=== PATIENT | female | born 1955 | race Caucasian/White ===

== ENCOUNTER 2023-04-24 10:35 | Outpatient (RCR) | payer MEDICARE, OTHER, SELFPAY ==
--- NOTE | 2023-04-24 11:22 | PTOPEVAL1 ---
Assessment and note entered by Sin Foster Evaluation Information Assessment Status Evaluation Diagnosis neck pain, bilateral shoulder pain, vertebrogenic back pain Onset 04/19/23 Subjective Information Pt. reports that she has delt with on/off neck and shoulder pain for about 4-5 years. She reports that the pain in her neck and shoulders is constant. She denies any symptoms into the u.e. She states that she has no numbness and tingling. She states that pain is increased with prolonged periods of standing. She reports that she has not had xray or MRI. She states that she has developed some minor low back pain, but her neck and shoulder pain are her biggest concern. She reports that her pain will wake her at night on occasion and she is using a sleep aid. She takes Aleve daily to address her pain. She reports that her goal for therapy is to reduce her neck pain. Reported Pain Level Pain Score 4,3: Self Report Assessment PT Clinical Summary Pt. is a 67 year old female who enters the clinic with neck and low back pain. She presents with impaired postural awareness, core and proximal u.e . weakness, impaired cervical and lumbar spine ROM and pain. Continued skille PT is indicated in order to improve these areas to allow the pt. to be able to complete all IADL's with improved comfort and efficiency. Plan of Care Interventions Electrical Stimulation,Hot Pack/Cold Pack,Manual Therapy,Mechanical Traction,Neuro Re-education, Patient/Caregiver Educati,Therapeutic Activities, Therapeutic Exercise PT Services Indicated Yes Treatment Frequency and 2x/week x 12 visits Duration These treatments will address the objective and functional deficits as defined above. The patient will be advanced safely and appropriately in order for the patient to progress towards his/her prior level of function. Additional exercises will be introduced and as well as a comprehensive home exercise program upon discharge, if needed, ?to ensure carryover of functional gains achieved in the clinic. This treatment plan has been reviewed and agreement upon by the patient.
--- NOTE | 2023-04-24 11:23 | OPREHPOC ---
Outpatient Therapy Plan of Care This is a Multidisciplinary Plan of Care that may contain components documented by all disciplines (PT, OT, and ST.) PT Problem 1 PT Problem #1 Knowledge Deficit PT Goal 1 Goal Pt. will be independent with a HEP addressing strength and postural awareness Target Visit 2 PT Problem 2 PT Problem #2 Impaired Range of Motion PT Goal 1 Goal Pt. will improve c-spine ROM to 75 degrees bilateral rotation in order to improve visual field Target Visit 8 PT Goal 2 Goal Pt. will be able to reach to the floor to perform safe lifting technique with floor to waist lifting . Target Visit 8 PT Problem 3 PT Problem #3 Pain PT Goal 1 Goal Pt. will report 2/10 neck pain at worst with prolonged periods of standing for greater than 1 hour. Target Visit 12 PT Problem 4 PT Problem #4 Impaired Strength PT Goal 1 Goal Improve proximal u.e. strength to 4+/5 or greater at all mm. groups in order to improve postural awareness. Target Visit 12
--- NOTE | 2023-05-30 17:49 | OPREHPOC ---
Outpatient Therapy Plan of Care This is a Multidisciplinary Plan of Care that may contain components documented by all disciplines (PT, OT, and ST.) PT Problem 1 PT Problem #1 Knowledge Deficit PT Goal 1 Goal Pt. will be independent with a HEP addressing strength and postural awareness Target Visit 2 Progress Met PT Problem 2 PT Problem #2 Impaired Range of Motion PT Goal 1 Goal Pt. will improve c-spine ROM to 75 degrees bilateral rotation in order to improve visual field Target Visit 8 Comment continue PT Goal 2 Goal Pt. will be able to reach to the floor to perform safe lifting technique with floor to waist lifting . Target Visit 8 Comment continue PT Problem 3 PT Problem #3 Pain PT Goal 1 Goal Pt. will report 2/10 neck pain at worst with prolonged periods of standing for greater than 1 hour. Target Visit 12 Comment continue PT Problem 4 PT Problem #4 Impaired Strength PT Goal 1 Goal Improve proximal u.e. strength to 4+/5 or greater at all mm. groups in order to improve postural awareness. Target Visit 12 Comment continue
--- NOTE | 2023-05-30 17:49 | PTOPPROGNS ---
Assessment and note entered by Rica Barragan DPT Evaluation Information Assessment Status Evaluation Diagnosis neck pain, bilateral shoulder pain, vertebrogenic back pain Onset 04/19/23 Subjective Information Patient reports that since starting PT she feels like her neck ROM has improved. She feels like her posture has also improved. She reports since starting to come to PT in the afternoon's after school her pain levels have increased. Assessment PT Clinical Summary Patient has been seen for 10 visits of skilled PT. Patient has made some improvement with UE strength and ability to turn her head to drive and have conversation. Patient continues to have difficulty with sleeping and prolonged positioning . Patient will benefit from remaining 2 visits to address impairments and return to PLOF. Plan of Care Interventions Electrical Stimulation,Hot Pack/Cold Pack,Manual Therapy,Mechanical Traction,Neuro Re-education, Patient/Caregiver Educati,Therapeutic Activities, Therapeutic Exercise PT Services Indicated Yes Treatment Frequency and continue with remaining 2 visits Duration These treatments will address the objective and functional deficits as defined above. The patient will be advanced safely and appropriately in order for the patient to progress towards his/her prior level of function. Additional exercises will be introduced and as well as a comprehensive home exercise program upon discharge, if needed, ?to ensure carryover of functional gains achieved in the clinic. This treatment plan has been reviewed and agreement upon by the patient.
--- NOTE | 2023-06-28 17:07 | OPREHPOC ---
Outpatient Therapy Plan of Care This is a Multidisciplinary Plan of Care that may contain components documented by all disciplines (PT, OT, and ST.) PT Problem 1 PT Problem #1 Knowledge Deficit PT Goal 1 Goal Pt. will be independent with a HEP addressing strength and postural awareness Target Visit 2 Progress Met PT Problem 2 PT Problem #2 Impaired Range of Motion PT Goal 1 Goal Pt. will improve c-spine ROM to 75 degrees bilateral rotation in order to improve visual field Target Visit 8 Progress Not Met Comment continue PT Goal 2 Goal Pt. will be able to reach to the floor to perform safe lifting technique with floor to waist lifting . Target Visit 8 Progress Met Comment continue PT Problem 3 PT Problem #3 Pain PT Goal 1 Goal Pt. will report 2/10 neck pain at worst with prolonged periods of standing for greater than 1 hour. Target Visit 12 Progress Not Met Comment continue PT Problem 4 PT Problem #4 Impaired Strength PT Goal 1 Goal Improve proximal u.e. strength to 4+/5 or greater at all mm. groups in order to improve postural awareness. Target Visit 12 Progress Not Met Comment continue
--- NOTE | 2023-06-28 17:08 | PTOPDC ---
Assessment and note entered by JT File, PT Evaluation Information Assessment Status Discharge Diagnosis neck pain, bilateral shoulder pain, vertebrogenic back pain Onset 04/19/23 Subjective Information [email or web address] reports she continues to have increased pain in the neck since returning to school. however, she reports her mobility still feel better. she reports she is hoping to get a breast reduction surgery to help alleviate some of her neck and back pains. Reported Pain Level Pain Score 8,8: Self Report Assessment PT Clinical Summary mrs. silva presentse to skilled PT services today for her 12th skilled therapy visit. until return to work she was doing well with reduced pain and improved rom. however, since returning to work her pain has returned and her neck is a bit tighter. however, she reports feeling she has more mobility. she is hoping to get a breast reduction surgery soon to help with her neck and back pain. as of this date, she will be dc'd from skilled PT services, and all progress towards goals will be taken from her most recent evaluation/note. Plan of Care PT Services Indicated Yes
== END 2023-06-28 19:00 | disposition home or self-care (01) ==
LOC: CHSPT 10:35
DX: M54.9 Dorsalgia, unspecified (principal); M54.2 Cervicalgia; M25.519 Pain in unspecified shoulder; N62 Hypertrophy of breast
CPT/HCPCS: 97014; 97110; 97140; 97150; 97161; G0283

== ENCOUNTER 2025-03-17 21:46 | Emergency (ER) | payer MEDICARE, OTHER, SELFPAY ==
[2025-03-17 21:46] VITALS: BP 155/76; PULSE 62; RESP 16; TEMP 36.8; O2SAT 97
--- NOTE | 2025-03-17 21:52 | ED_ITS ---
HPI - Extremity Injury (Lower) General Chief Complaint: Wound/Laceration Stated Complaint: left lower leg skin tear Time Seen by Provider: 03/17/25 21:51 Source: patient Mode of arrival: ambulatory Limitations: no limitations History of Present Illness HPI Narrative: 69 year old female presents to the Emergency Department with laceration to anterior left lower leg. Patient states she struck her leg with rake several hours ago. Unknown last tetanus. complaint: leg injury Onset (ago): hour(s) Type of Injury: laceration Place: home Severity: mild Relieving factors: nothing Exacerbating factors: nothing Context: direct blow Other symptoms: none Related Data Allergies Allergy/AdvReac Type Severity Reaction Status Date / Time No Known Allergies Allergy Mild Verified 03/17/25 21:57 Review of Systems Review of Systems: All systems reviewed & are unremarkable except as noted in HPI and below Constitutional: Constitutional: Reports as per HPI and Reports no additional constitutional complaints Eyes: Eyes: Reports as per HPI and Reports no additional eye complaints ENT: Reports system reviewed and no additional complaints, except as documented Cardiovascular: Cardiovascular: Reports as per HPI and Reports no additional cardiovascular complaints Respiratory: Respiratory: Reports as per HPI and Reports no additional respiratory complaints Gastrointestinal: Gastrointestinal: Reports as per HPI and Reports no additional gastrointestinal complaints Genitourinary: Genitourinary: Reports no additional female genitourinary complaints Musculoskeletal: Musculoskeletal: Reports no additional musculoskeletal complaints Integumentary/Breasts: Skin/Breast: Reports system reviewed and no additional complaints, except as docu Neurologic: Reports system reviewed and no additional complaints, except as documented Endocrine: Endocrine: Reports no additional endocrine complaints Hematologic/Lymphatic: Hematologic/Lymphatic: Reports no additional hematologic/lymphatic complaints Allergic/Immunologic: Allergic/Immunologic: Reports no additional allergic/immunologic complaints [facility] Family History Family History Father Family history of lung cancer Social History Social History Alcohol intake: current Exam Const: General: healthy appearing Nutritional Appearance: well nourished Orientation/consciousness: patient oriented x3 Limitations: no limitations HENMT: Head: normal to inspection Ears: external ears normal Face/Nose/Sinus: Normal external nose present Face and sinus: normal facial exam Eyes: Pupils: Equal, round and reactive pupils present EOM: EOMs intact bilaterally Direct Ophthalmoscopy: no photophobia Neck: Neck: normal visual inspection Chest: Chest palpation & inspection: normal inspection of the chest Resp: Effort & Inspection: normal respiratory effort Cardio: Rate: regular rate GI: Inspection: non-distended Skin: General skin exam: normal color Other: 2.5-3 cm laceration to anterior lower le ft leg. No active bleeding. Neuro: General: patient oriented x3 Speech: normal speech Gait exam (Neuro): Normal gait present Other: grossly normal Extrem: General: no clubbing, cyanosis or edema Other: left lower leg laceration Course Course Emergency Course: 69 y/o female presents to the ED with laceration to LLE. Patient states she struck her leg with rake several hours ago. PE: 2.5-3 cm laceration to anterior lower leg. Skin is relatively thin, no active bleeding *discussed with patient. Offered to suture, however skin relatively thin. Patient opted to have wound steri stripped. Tx: wound cleansed, steri strips, dressing, tetanus update Instructions Discharge Plan Discharge Clinical Impression: Laceration of left lower extremity Patient Disposition: Home Condition: Stable Instructions: Laceration (ED) Additional Instructions: Neosporin ointment topically 2-3x/day Tylenol, Ibuprofen and Aleve as needed Follow up Primary Care Physician Patient Language: Latvian Follow-up/Referrals: UNKNOWN,DOCTOR [Primary Care Provider] - Time of Disposition: 22:10
--- OUTSIDE RECORDS SUMMARY | 2025-03-17 21:52 | XMS_ITS | Data Portability ---
Author Organization [facility] [place] Address [address] [place] [address] Care Team Providers Care Cook Mess Name Role Phone [facility]IE [facility] Primary Care Provider Assessment Encounter Date Assessment Date Assessment LastModified by Organization Details LastModified Time 12/11/2021 12/11/2021 Annual gynecological exam performed. Patient will come back in a year unless there are new symptoms. [email or web address] Not available 10/27/2021 14:13:06 Plan of Treatment Reminders Order Date Submit Date Provider Last Modified By Organization Details Last Modified Time Details Appointments None recorded. Lab None recorded. Referral plastic surgeon referral [facility] Lamont Flores MD, [address], [place], [address], 2 12:40:48 gastroenter ologist referral - Please reach out to Olga to schedule her for an appt for a screening colonoscopy . If you have any questions or require further information , please contact me at [phone]. Thank you, MOJGAN Benitez 2021 [facility], [address], [address], [place], [address], 3 05:01:46 Procedures None recorded. Surgeries None recorded. Imaging DEXA, axial skeleton + vertebral fracture assessment 2021 DANIE [facility], [address], [place], [address], 23:25:01 Medication Orders fluoxetine 10 mg capsule 2021 022 DAN[facility], [facility] [place], [address], 13:20:19 Patient TargetsNo targets recorded. Patient InstructionsNo instructions recorded. Reason for Referral Transcribing Operator Head Referral for Screening for malignant neoplasm of colon Please reach out to Olga to schedule her for an appt for a screening colonoscopy. If you have any questions or require further information, please contact me at [phone]. Thank you, MOJGAN Benitez Referring Physician: Gabriela Sanchez, DROPHAMMER OPERATOR, Encounter Date: 12/11/2021 Plastic Surgeon Referral for Chronic neck pain Referring Physician: Gabriela Sanchez DROPHAMMER OPERATOR, Encounter Date: 12/11/2021 Results Created Date Observation Date Name Description Value Unit Range Abnormal Flag Note LastModifiedBy Organization Detail LastModifiedTime 12/14/19 22 12/13/2021 IMAGE GUIDE D PAP AND HPV REGAR DLESS image guided Pap, HPV regardless of Pap result SEE RESULT S BELOW CASE REPOR T: Cytol ogy Gynec ologi caridad Repor t Case: [id number] Autho nima clem Provi noemi: Jimmy Nowak Colle cted: 12/13 0808 OBGYN HOSPITALIST PHYSICIAN Order ing Locat ion: [place] Patho log[facility] Recei francisca: 12/14 0159 First Scree n: Celi Aguiar ret, CT Speci men: Scree susu Pap - Image d, Cervi x STATE MENT OF ADEQU ACY: Satis facto ry for evalu ation Trans forma tion zone compo nent prese nt FINAL DIAGN OSIS: Negat joshua for Intra epith elial Lesjames n or Sherron salmon (NIL) . Elect claudia byrd bhavya d by Celi Aguiar ret, CT on 2021 at 3:47 PM ----- ----- ----- ----- ----- ----- ----- ----- ----- ----- ----- ----- ----- ----- ----- ----- ----- ---- HPV RESUL TS: HPV mRNA E6/E7 : No HPV mRNA Detec aquilino NOTE: This high risk HPV mRNA assay detec ts fourt een high- risk HPV types (16, 18, 31, 33, 35, 39, 45, 51, 52, 56, 58, 59, 66, 68) witho ut diffe renti ation . COMME NT: Note: This speci men was revie wed by a Cytot echno logis t and/o r Patho logis t (as indic ated in this repor t) after evalu ation using the Thinp rep Imagi ng Syste m. CLINI CARIDAD INFOR MATIO N: Menst rual Statu s: LMP (if appli cable ): Clini caridad Histo ry/Pr eviou s Pap: Type of Neopl toyin (if appli cable ): Signi fican t Clini caridad Findi ngs: Other Histo ry: Hormo hazel (if appli cable ): PAP EDUCA JAZMIN L NOTE: The Pap Test is a scree susu test with an inher ent false negat joshua rate. Liqui d-bas ed sampl ing may decre ase, but will not elimi ras, false negat joshua resul ts. A negat joshua resul t does not precl ude the prese nce and/o r devel opmen t of disea se, since the prese nce of abnor mal cells in the sampl e depen ds on the locat ion of the lesio n and sampl ing techn ique. Arlyn nued regul ar scree susu is the best metho d of cance r preve ntion . If repor aquilino cytol ogic findi ng do not corre late with physi caridad and/o r histo rical findi ngs, furth er inves tigat ion is recom jeanine d, as clini tonya jin nted. Not Available [facility] (Lab) [address], [place], [address], 12/17/2021 17:10:24 12/24/19 22 12/23/2021 DEXA, axial skele ton + verte bral fract ure asses sment No observ ation record ed. [email or web address] [place] [address] (Radiology) [address], [place], [address], 12/29/2021 14:34:17 12/24/19 22 12/23/2021 MAMMO , scree susu, bilat eral No observ ation record ed. [email or web address] [facility] [address] [place], [address], 12/29/2021 14:36:05 Result Notes None recorded. Problems Name Problem SNOMED Code Status Onset Date Resolution Date Notes Provider Name and Address Organization Details Recorded Time SNOMED CT Concept Completed 201810/27/2021 Encounte r for general adult medical exam w abnormal findings ;Practic e ID: 0001 Haley Luis [facility] 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 2 14:14:02 Emotiona l state finding Completed 201810/27/2021 Anxiety depressi on;Recor ded Elsewher e: No Locat ion: [facility] S ource: EHR Cad Administrator vee: N Practi ce ID: 0001 Bulmaro lable Time: 11:30:00 AM Haley Smith [facility] 2 14:13:32 Evaluati on finding Completed 201810/27/2021 Hematuri a, unspecif ied;Sudarshan rded Elsewher e: No Locat ion: [facility] S ource: EHR Cad Administrator vee: N Practi ce ID: 0001 Bulmaro lable Time: 11:30:00 AM Haley reyna, [facility] 2 14:13:40 Adult health examinat ion Completed 201310/27/2021 Routine Medical Exam;Rec orded Elsewher e: No Locat ion: [facility] S ource: EHR Cad Administrator vee: N Aakash ce ID: 0001 Bulmaro lable Time: 01:00:00 PM Haley reyna, [facility] 2 14:13:38 Atypical squamous cells of undeterm ined signific ance on cervical Papanico laou smear [id number] Completed 201110/27/2021 Papanico laou smear of cervix with atypical squamous cells of undeterm ined signific ance (ASC-US) ;Recorde d Elsewher e: No Locat ion: [facility] S ource: EHR Cad Administrator vee: N Aakash ce ID: 0001 Bulmaro lable Time: 03:45:00 PM Haley reyna, [facility] 2 14:14:15 Finding of body mass index 853857115 Completed 201810/27/2021 Body mass index (BMI) 40.0-44. 9, adult;Re corded Elsewher e: No Locat ion: [facility] S ource: EHR Cad Administrator vee: N Aakash ce ID: 0001 Bulmaro lable Time: 11:30:00 AM Haley reyna, [facility] 2 14:13:53 Speciali zed medical examinat ion Completed 201310/27/2021 Gynecolo gical Examinat ion;Sudarshan rded Elsewher e: No Locat ion: [facility] S ource: EHR Cad Administrator vee: N Aakash ce ID: 0001 Bulmaro lable Time: 01:00:00 PM Haley reyna, [facility] 2 14:14:20 Screenin g for malignan t neoplasm of rectum Completed 201510/27/2021 Encounte r for screenin g for malignan t neoplasm of rectum;R ecorded Elsewher e: No Locat ion: Basia massey [facility] S ource: EHR Cad Administrator vee: N Practi ce ID: 0001 Bulmaro lable Time: 03:30:00 PM Haley reyna [facility] 2 14:13:51 Removal of intraute rine device Completed 201210/27/2021 REMOVAL OF IUD;Sudarshan rded Elsewher e: No Locat ion: [facility] S ource: EHR Cad Administrator vee: N Practi ce ID: 0001 Bulmaro lable Time: 11:45:00 AM [facility] 14:14:21 Blood in urine [id number] Completed 201410/27/2021 HEMATURI A NOS;Sudarshan rded Elsewher e: No Locat ion: [facility] S ource: EHR Cad Administrator vee: N Practi ce ID: 0001 Bulmaro lable Time: 10:42:25 AM Haley reyna, [facility] [address] 14:13:[address] Concept Completed 201510/27/2021 Encntr for general adult medical exam w/o abnormal findings ;Recorde d Elsewher e: No Locat ion: [facility] S ource: EHR Cad Administrator vee: N Practi ce ID: 0001 Bulmaro lable Time: 03:30:00 PM Haley reyna [facility] 2 14:13:59 Microsco pic hematuri a [id number] Completed 201210/27/2021 MICROSCO PIC HEMATURI A;Record ed Elsewher e: No Locat ion: [facility] S ource: EHR Cad Administrator vee: N Practi ce ID: 0001 Bulmaro lable Time: 03:30:00 PM Haley reyna, [facility] 2 14:13:37 Screenin g for malignan t neoplasm of cervix Completed 201210/27/2021 Screenin g for malignan t neoplasm s of the cervix;R ecorded Elsewher e: No Locat ion: Mineanny massey [facility] S ource: EHR Cad Administrator vee: N Practi ce ID: 0001 Bulmaro lable Time: 03:30:00 PM Haley reyna, [facility] 2 14:13:35 Screenin g for malignan t neoplasm of colon Completed 201010/27/2021 Special screenin g for malignan t neoplasm s, colon;Pr actice ID: 0001 Haley reyna, [facility] 2 14:13:50 Problem Notes None recorded. Procedures Surgical History Date Name Laterality Status Provider Name and Address Organization Details Recorded Time 03/19/20 19 Date of Last Pap Smear completed [facility] 12/11/2021 12:34:13 10/09/19 15 Date of Last Colonoscopy completed [facility] 12/11/2021 12:52:45 10/09/19 [address] [facility] 12/11/2021 12:36:31 Carpal tunnel surgery completed [facility] 12/11/2021 12:36:37 angiography of coronary artery completed [facility] 12/11/2021 12:36:48 angioplasty of femoral artery completed [facility] 12/11/2021 12:37:03 cardiac catheterization completed [facility] 12/11/2021 12:37:33 Tubal Ligation completed [facility] 12/11/2021 12:37:41 Endometrial Ablation completed [facility] 12/11/2021 12:41:24 Imaging Results None recorded. Procedure Notes None recorded. Medical Equipment None Reported. Allergies No known drug allergies Medications Name Sig Start Date Stop Date Status Note LastModified by Organization Details LastModified Time Wellbutri n 75 mg tablet take 1 tablet by oral route 3 times every day 01/31 completed Prescrib ed Elsewher e: Yes [facility] By: eve quiros DateTime : 01/10/20 12 03:45:00 PM Not Available Not Available Not Available hydrochlo rothiazid e 12.5 mg capsule take 2 capsule by oral route every day active Not Available Not Available No t Available fluoxetin e 10 mg capsule Take 1 capsule( s) every day by oral route at bedtime for 30 days. 2021 active Not Available Not Available Not Avai lable metoprolo l succinate ER 25 mg tablet,ex tended release 24 hr active Not Available Not Available Not Available lisinopri l 40 mg tablet active Not Available Not Available Not Available lisinopri l 2.5 mg tablet take 1 tablet by oral route every day active Not Available Not Available No t Available bupropion HCl XL 300 mg 24 hr tablet, extended release TAKE 1 TABLET (300MG) BY ORAL ROUTE EVERY DAY active Not Available Not Available No t Available metoprolo l succinate active Not Available Not Available No t Available Vitals Date Recorded Body height Body mass index (BMI) Body weight Systolic blood pressure Diastolic blood pressure Systolic blood pressure Diastolic blood pressure Provider Name and Address Organization Details Last Updated DateTime 2 144.78 cm 42.8 kg/m2 53626.2 9 g 152 mm[Hg] 79 mm[Hg] 140 mm[Hg] 70 mm[Hg] [facility] 2 12:52:23 Social History None recorded. Functional Status None recorded. Mental Status None recorded. Family History Nothing Reported Notes:Father: Cancer, lung, Diabetes mellitus, Hypertension Maternal grandfather: Tuberculosis Mother: Hepatitis Medical History Condition Response Other N Blood Transfusion N Dermatologic Disorders N Gestational Diabetes N Anxiety Disorder N Autoimmune disease N Arthritis N Polyps N Infertility N Acid Reflux (GERD) N Cancer N Varicosities N Stroke N Neurologic/Epilepsy N Fibromyalgia N Headaches N Kidney Disease N Heart Problems N Kidney or Bladder Problems N Eating Disorder N Art (IVF or FET) N Hepatitis/Liver Disease N No Past Medical History N Urinary Tract Infection N Asthma N Trauma/Violence N Thrombophilias N Allergies (Food, seasonal, environmental ) N Breast Cancer N Drug/Latex Allergies/Reactions N Lung Disease N Defects or Inherited Disease N Breast Problem N Hematologic disorders N Anesthesia Complications N History of STI N Deep Vein Thrombosis N Polycystic ovary syndrome N History of abnormal pap N Endometriosis N High Cholesterol N Thyroid Problems N GI Problems N Anemia N Psychiatric Illness N Ovarian Cancer N Diabetes N Pulmonary (TB, Asthma) N Eczema N Abuse/Domestic Violence N Depression/ depression N Heart Disease N Pre-Eclampsia N Hypertension Y Osteoporosis N Gynecological History Statement/Question Response Date of Last Pap Smear 03/19/2019 Current Control Method Tubal Ligat ion Date of Last Mammogram Date of Last Colonoscopy 10/09/2014 Obstetrics History GPAL:G 3 P 3 0 0 3 Type Value Full Term 3 Living 3 Total 3 Past Encounters Encounter ID Performer Location Encounter Start Date Encounter Closed Date Diagnosis/Indication Diagnosis SNOMED-CT Code Diagnosis ICD10 Code Diagnosis Note [id number] Gabriela Sanchez , [facility] [address] [address] 12/11/2021 12:44:05 12/13/2021 13:20:48 Gynecologic examination 42095333 Z01.419 Take Calcium with Vitamin D 12-1500mg daily. Do monthly self breast exams. It is advised to get annual flu shot in the fall and she could obtain at [facility] or [facility] care clinic. If you haven't received the Tdap vaccine in the last 10 years you should obtain one as well. Have mammogram yearly, bone density every 2-3 years and colonoscop y every 5-10 years depending on findings and history. Engage in daily exercise of low impact aerobic exercise 45-60 minutes 4-5 times weekly. Avoid tobacco and illicit drugs as well as using moderation with alcohol intake less than 1-2 8 oz beverages daily. This lifestyle behavior pattern will lead to less health conditions and longer life span. If BMI greater than 25 weight watchers or dietary consult advised. Questions have been answered. Patient appears to understand instructio ns, but if you have any further questions call or respond to this email Pap/hpv-Se ntColon screen-ord eredDexa screen-ord eredMammo screen-ord eredAdvise d to est care with a new PCP vs the clinic she has been going to who manages her HTN medication ; need re-evaluat ion of HTN medication to ensure no issues there since BP is a bit high today on her medication s. Screening for malignant neoplasm of colon 360995252 Z12.11 Postmenopausal state 764 07267 Z78.0 Menopause 136380267 N95. 1 Not a candidate for HRT but is for Non-HRT.We discussed trial of Fluoxetine low dose x 6wks with [employer].Ho t flashes & trouble sleeping could also be related to HTN; she was advised to seek out PCP services.N eg suicidal ideations/ thoughts of self-harm. Chronic neck pain [id number] 3369 107 M54.2 Request for referral for breast reduction consult.Ch ronic neck/back pain.Tried PT/Support joshua bras etc.Does not feel anything was beneficial . [id number] Gabriela Sanchez , [facility] [address] [address] 02/14/2022 12:06:39 02/14/2022 13:26:46 Menopausal symptom 59687552 N95.1 Trial of prozac initiated at her [facility].Stoppe d taking it b/c it kept her up at night.She did not try taking it in the morning.Sh e has decided to give taking this medication in the AM a try; and if it is still keeping her up at night after a week she will reach out & we will switch to Paxil SSRI instead.Ne g suicidial ideations or thoughts of self harm. Total time of virtual-ZO OM visit was approx 15 mins with >50% consisting of counseling , education of patient's plan of care. Health Concerns Section Related Observation LastModified by Organization Detai ls LastModified Time None Recorded Concern Status LastModified by Organization Details LastModified Time None Recorded Advance Directives Directive None Recorded Payers Encounter Date Sequence Insurance Name Policy Number Policy Moore Covered Member ID Moore Member ID Guarantor Name 12/11/2021 1 MEDICARE-DC (MEDICARE) Olga Mccord [id number] Olga Mccord 12/11/2021 2 [employer]OORVAA Olga Mccord [id number] Olga Mccord 02/14/2022 1 MEDICARE-[place] (MEDICARE) Olga Mccord [id number] Olga Mccord 02/14/2022 2 [employer] (MEDICARE SUPPLEMENT) Olga Mccord [id number] Olga Mccord Notes Date Note Type Note Provider Name and Address Organization Details Recorded Time 12/11/2021 text/html 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 Post-MenopausalRep orted bypatient.Menopaus al Symptoms:normal vaginal lubrication;hot flashes;insomnia due to night sweats Vaginal Bleeding:history of menopause having occurred; no history of post menopausal bleeding Urinary Symptoms:no hematuria; no incontinence; no nocturia; no urinary frequency Vulva:no genital lesion; no vulvar atrophy Vagina:normal vaginal discharge; no vaginal atrophy Breast:no breast lump; no nipple discharge; no breast pain Sexual Complaints:no sexual complaints Psychological Symptoms:no depression; no anxiety Preventive Measures:encourage regular mammograms starting age 40; encourage self breast examination; encourage regular exercise; encourage no tobacco use; needs to schedule mammogram; needs to schedule colonoscopy; needs to schedule bone density NORMA Dowell [address], [place], [address], [facility] 12/11/2021 13:30:47 02/14/2022 text/html Virtual visit fo r medication check of Prozac for menopause issues. Phone Consent: This visit was completed via Virtual Visit Zoom due to the restrictions of the COVID-19 pandemic; all issues as below were discussed and addressed but no physical exam was performed. If it was felt that the patient should be evaluated in clinic then they were directed there. The patient verbally consented to this virtual Zoom visit. NORMA Dowell [address], [place], [address], [facility] 02/14/2022 13:03:13 OBGyn Episode Ob Episode Information Episode Created Date Number of Fetuses Patient Bloodtype Patient rh Status Prepregnancy Weight lbs Domestic Partner Domestic Partner Phone Father Name Plate Driller Status 12/12/19 22 1 CLOSED Fetus Data First Name Last Name Admitted to NICU Weight (g) Sex Living Outcome Pediatric Complications Fetus ID Race Codes Race Delivery Type F [id number] Vaginal Delivery Ladarius Calculation Initial Ladarius Date Initial Exam Date Initial Exam Provider Initial Ultrasound Date Last Menstrual Period Date Ultra Sound Weeks Gestation 0 Eighteen To Twenty Week Ladarius Update Ultra Sound Date Fundal Height At Umbil Quickening Date Ultra Sound Latest Weeks Gestation Final Ladarius Confirmed By Final Ladarius Confirmed Date Final Ladarius Date Ultra Sound Latest Days Gestation 0 0 Menstrual History Last Menstrual Date Menses Monthly On Bcp Conception Prior Menses Frequency Hcg Plus Date Menarche Onset Age Delivery Information Delivery Date Delivery Type Labor Anesthesia Weeks Gestation Incision Type Labor Labor Length Hrs Delivered By Post Complications Tubal Sterilization Discharge Date Comments 2 Discharge Information Feeding Method Contraceptive Method Maternal HG B and HCT Levels Ob Episode Information Episode Created Date Number of Fetuses Patient Bloodtype Patient rh Status Prepregnancy Weight lbs Domestic Partner Domestic Partner Phone Father Name Plate Driller Status 12/12/19 22 1 CLOSED Fetus Data First Name Last Name Admitted to NICU Weight (g) Sex Living Outcome Pediatric Complications Fetus ID Race Codes Race Delivery Type M [id number] Vaginal Delivery Ladarius Calculation Initial Ladarius Date Initial Exam Date Initial Exam Provider Initial Ultrasound Date Last Menstrual Period Date Ultra Sound Weeks Gestation 0 Eighteen To Twenty Week Ladarius Update Ultra Sound Date Fundal Height At Umbil Quickening Date Ultra Sound Latest Weeks Gestation Final Ladarius Confirmed By Final Ladarius Confirmed Date Final Ladarius Date Ultra Sound Latest Days Gestation 0 0 Menstrual History Last Menstrual Date Menses Monthly On Bcp Conception Prior Menses Frequency Hcg Plus Date Menarche Onset Age Delivery Information Delivery Date Delivery Type Labor Anesthesia Weeks Gestation Incision Type Labor Labor Length Hrs Delivered By Post Complications Tubal Sterilization Discharge Date Comments 7 Discharge Information Feeding Method Contraceptive Method Maternal HG B and HCT Levels Ob Episode Information Episode Created Date Number of Fetuses Patient Bloodtype Patient rh Status Prepregnancy Weight lbs Domestic Partner Domestic Partner Phone Father Name Plate Driller Status 12/12/19 22 1 CLOSED Fetus Data First Name Last Name Admitted to NICU Weight (g) Sex Living Outcome Pediatric Complications Fetus ID Race Codes Race Delivery Type F [id number] Vaginal Delivery Ladarius Calculation Initial Ladarius Date Initial Exam Date Initial Exam Provider Initial Ultrasound Date Last Menstrual Period Date Ultra Sound Weeks Gestation 0 Eighteen To Twenty Week Ladarius Update Ultra Sound Date Fundal Height At Umbil Quickening Date Ultra Sound Latest Weeks Gestation Final Ladarius Confirmed By Final Ladarius Confirmed Date Final Ladarius Date Ultra Sound Latest Days Gestation 0 0 Menstrual History Last Menstrual Date Menses Monthly On Bcp Conception Prior Menses Frequency Hcg Plus Date Menarche Onset Age Delivery Information Delivery Date Delivery Type Labor Anesthesia Weeks Gestation Incision Type Labor Labor Length Hrs Delivered By Post Complications Tubal Sterilization Discharge Date Comments Discharge Information Feeding Method Contraceptive Method Maternal HG B and HCT Levels
--- OUTSIDE RECORDS SUMMARY | 2025-03-17 21:52 | XMS_ITS | Data Portability ---
Author Organization [facility], [address] Neurology (CT) Address [address] [place] [address] Care Team Providers Care Switcher Name Role Phone ELYSIA FAIRBANKS Primary Care Provider Assessment Encounter Date Assessment Date Assessment LastModified by Organization Details LastModified Time 01/20/2025 01/20/2025 Ms. Mccord is a 69-year-old female with a history of gallstone pancreatitis status post cholecystectomy in 2019 with one more episode of pancreatitis, anxiety and depression who presents for follow-up. CT abdomen in January 2023 had shown pancreatitis with nonorganized fluid collection, without necrosis. MRCP in January 2023 showed no evidence of choledocholithiasis and a normal pancreatic duct. It did note a 5 mm fluid collection with a differential of a pseudocyst versus side branch IPMN. They had recommended a repeat in six months. MRCP performed at [facility] in July 2023 showed normal caliber of the bile ducts without any stones and normal caliber of pancreatic duct without any inflammation. No suspicious liver lesions or pancreatic lesions were noted. She was on lisinopril and hydrochlorothiazide prior to that admission, which could have contributed to the pancreatitis. She currently complains of Left upper quadrant pain and chronic diarrhea with four to five stools per day. Her last colonoscopy was in 2022 and showed a mildly redundant colon with 1 small tubular adenoma. Her current symptoms are not suggestive of pancreatitis and she will not benefit from an ERCP. -Will perform upper endoscopy under monitored anesthesia care. Discussed risks of performing endoscopy including an allergic reaction to medications, missed lesions, infections, bleeding, perforation requiring surgery and rarely catastrophic cardiopulmonary events resulting in . -Provided info on low FODMAP diet to help with the diarrhea -Will do a trial of cholestyramine for the diarrhea -Recommended avoiding Pepto-Bismol -She will be due for her next colonoscopy in 2027 [email or web address] Not available 01/27/2025 10:50:37 Plan of Treatment Reminders Order Date Submit Date Provider Last Modified By Organization Details Last Modified Time Details Appointments None recorded. Lab None recorded. Referral None recorded. Procedures None recorded. Surgeries None recorded. Imaging None recorded. Medication Orders cholestyram ine (with sugar) 4 gram oral powder 2024 025 DANIE [facility], [address] [place] [address], [address], [place], [address], 12:17:29 Patient TargetsNo targets recorded. Patient InstructionsNo instructions recorded. Reason for Referral None Reported. Problems Name Problem SNOMED Code Status Onset Date Resolution Date Notes Provider Name and Address Organization Details Recorded Time Irritable bowel syndrome with diarrhea 108915693 Active 2024 Linus Rodriguez MD [address] [place] [address], [phone], [facility] 5 12:15:54 Left upper quadrant pain 583430390 Active 2024 Linus Rodriguez MD [address] [place] [address], [phone], [facility] 5 10:45:08 Erosive esophagitis 14306237 Active 2024 Linus Rodriguez MD [facility] [place] [address], [phone], [facility] 5 09:30:19 Problem Notes None recorded. Procedures Surgical History Date Name Laterality Status Provider Name and Address Organization Details Recorded Time colonoscopy and biopsy of colon completed Mine Alexander [facility] 01/10/2025 17:10:14 Imaging Results None recorded. Procedure Notes None recorded. Medical Equipment None Reported. Allergies No known drug allergies Medications Name Sig Start Date Stop Date Status Note LastModified by Organization Details LastModified Time furosemide 40 mg tablet Take 0.5 tablets every day by oral route. active Not Available Not Available No t Available hydralazine 25 mg tablet Take 1 tablet twice a day by oral route. active Not Available Not Available No t Available sulfamethoxa zole 800 mg-trimethop rim 160 mg tablet TAKE 1 TABLET BY MOUTH TWICE A DAY FOR 7 DAYS 01/20 completed Not Available Not Available Not Available colesevelam 625 mg tablet Take 3 tablets twice a day by oral route for 30 days. 2024 active Not Available Not Available Not Avai lable cephalexin 500 mg capsule TAKE 1 CAPSULE BY MOUTH FOUR TIMES DAILY FOR 7 DAYS 01/20 completed Not Available Not Available Not Available pantoprazole 40 mg tablet,delay ed release Take 1 tablet twice a day by oral route before meal(s) for 60 days. 2024 active Not Available Not Available Not Avai lable Vitamin D 50,000 unit capsule Take 1 capsule every week by oral route. active Not Available Not Available No t Available cholestyrami ne (with sugar) 4 gram oral powder Take 1 scoop 3 times a day by oral route with meal(s) for 30 days. 2024 active Not Available Not Available Not Avai lable fluoxetine 40mg 1 daily active Not Available Not Available No t Available temazepam 30 mg 1 daily active Not Available Not Available No t Available metoprolol succinate 50 mg 1.5 tablets daily active Not Available Not Available No t Available Vitals Date Recorded Body height Body mass index (BMI) Body weight Oxygen saturation Oxygen saturation in Arterial blood by Pulse oximetry Heart rate Provider Name and Address Organization Details Last Updated DateTime 5 152.4 cm 40.9 kg/m2 00073.9 6 g 98 % 98 % 64 /min [facility] 11:52:47 Social History None recorded. Functional Status Question Answer Note LastModified by Organizat ion Details LastModified Time Do you use any illicit or recreational drugs? No [email or web address] Information not available 01/10/2025 What is your level of alcohol consumption? None [email or web address] Information not available 01/10/2025 Mental Status None recorded. Family History Relationship Description Onset Age of this Age Resolved Age Notes LastModified by Organization Details LastModified Time Mother Myocardial infarction [email or web address] Not available 01/10 17:07:15 Mother Congestive heart failure [email or web address] Not available 2024 17:08:28 Father History of malignant neoplasm [email or web address] Not available 2024 17:08:19 Medical History Condition Response Autoimmune disease N Acid Reflux (GERD) N Cancer N Crohn's Disease N Bleeding Disorder N Colon Cancer N Anemia N Colon Polyps N Chronic Ulcerative Colitis N Gynecological HistoryNo gynecological history recorded. Obstetrics History GPAL:G 0 P 0 0 0 0 Past Encounters Encounter ID Performer Location Encounter Start Date Encounter Closed Date Diagnosis/Indication Diagnosis SNOMED-CT Code Diagnosis ICD10 Code Diagnosis Note [id number] Linus Rodriguez MD [facility] 2nd Gastroent erology ([place]) [address] [place] [address] 01/20/2025 11:39:54 01/20/2025 12:35:32 Irritable bowel syndrome with diarrhea 000814484 K58.0 History of pancreatitis 5472218129 9107 Z87.19 History of cholecystectomy 865488513 Z90.49 Left upper quadrant pain 298157172 R10.12 Health Concerns Section Related Observation LastModified by Organization Detai ls LastModified Time None Recorded Concern Status LastModified by Organization Details LastModified Time None Recorded Advance Directives Directive None Recorded Payers Insurance Date Sequence Insurance Name Policy Number Policy Moore Covered Member ID Moore Member ID Guarantor Name 03/05/2025 1 [place] Olga Mcocrd [id number] Olga Mccord 03/07/2025 2 [employer] Olga Mccord [id number] Olga Mccord Notes Date Note Type Note Provider Name and Address Organization Details Recorded Time 01/20/2025 text/html Ms. Mccord has been having left upper quadrant pain which she describes as sharp. She also has a sensation of incomplete emptying with 4-5 bowel movements per day. This diarrhea is worsened with food and is associated with urgency and leakage. She has been gaining weight. Denies any acid reflux or blood in the stools or black stools except when she takes Pepto-Bismol. She admits to using tramadol occasionally. She does have bloating. Linus Rodriguez MD [address] [place], [address], [facility] 01/27/2025 10:50:56 OBGyn Episode No OBEpisode recorded.
[2025-03-17] MEDS: TETANUS,DIPHTHERIA,AC PERTUSSIS ADULT 0.5 ML (ADACEL) IM (22:33)
[2025-03-17 23:00] VITALS: BP 140/70; PULSE 62; RESP 16; O2SAT 98
== END 2025-03-17 23:00 | disposition home or self-care (01) ==
PROVIDERS: Emergency Provider Emergency Medicine
DX: S81.812A Laceration without foreign body, left lower leg, initial encounter (principal); W27.8XXA Contact with other nonpowered hand tool, initial encounter; Z23 Encounter for immunization
CPT/HCPCS: 90471; 90715; 99282